=== PATIENT | female | born 1975 | race Caucasian/White ===

== ENCOUNTER 2021-03-18 11:50 | Outpatient (CLI) | payer OTHER | END 2021-03-18 11:51 | disposition home or self-care (01) | LOC: LAB 11:50 | PROVIDERS: ATTEND Radiology Diagnostic Radiology | DX: R10.0 Acute abdomen (principal) ==

== ENCOUNTER → 2021-03-22 | Outpatient (CLI) | payer OTHER | END | disposition home or self-care (01) | LOC: TOM 10:25 | PROVIDERS: ATTEND General Practice | DX: M51.36 Other intervertebral disc degeneration, lumbar region (principal); L02.212 Cutaneous abscess of back [any part, except buttock and flank] ==

== ENCOUNTER 2022-02-15 12:55 | Outpatient (CLI) | payer OTHER | END 2022-02-15 12:56 | disposition home or self-care (01) | LOC: SONOGRAMA 12:55 | DX: R22.2 Localized swelling, mass and lump, trunk (principal) ==

== ENCOUNTER 2022-08-16 13:30 | Outpatient (CLI) | payer OTHER | END 2022-08-16 13:35 | disposition home or self-care (01) | LOC: MAMO-SONO 13:30 | DX: N64.4 Mastodynia (principal); N92.1 Excessive and frequent menstruation with irregular cycle ==

== ENCOUNTER 2022-08-29 10:02 | Emergency (ER) | payer OTHER ==
[~2022-08-29] VITALS: Ht 162.6 cm; Wt 60.3 kg
== END 2022-08-29 11:22 | disposition home or self-care (01) ==
LOC: ER 10:02
DX: R53.81 Other malaise (principal); R05.9 Cough, unspecified

== ENCOUNTER 2022-11-05 00:59 | Emergency (ER) | payer OTHER ==
[~2022-11-05] VITALS: Ht 162.6 cm; Wt 59.0 kg
[2022-11-05] MEDS ORDERED: BACTRIM DS TAB1 EACH PO (04:22)
== END 2022-11-05 04:27 | disposition home or self-care (01) ==
LOC: ER 00:59
DX: R10.9 Unspecified abdominal pain (principal); R30.0 Dysuria; Z91.013 Allergy to seafood; N39.0 Urinary tract infection, site not specified

== ENCOUNTER 2023-01-20 07:24 | Outpatient (CLI) | payer OTHER ==
[~2023-01-20 07:24] MED LIST: BACTRIM DS TAB1 EACH PO
[2023-01-20 08:05] LABS: HEMATOCRIT 38.8 % (36.0-45.00); HEMOGLOBIN 12.9 g/dL (12.0-15.00); MEAN CELL VOLUME 82.4 fL (80.00-100.00); MEAN CORPUSCULAR HEMOGLOBIN 27.4 pg (27.00-32.0); MEAN CORPUSCULAR HGB CONC 33.3 g/dl (32.0-36.0); PLATELET COUNT 183 K/uL (150-450); RED CELL DISTRIBUTION WIDTH 22.8 % (11.5-14.5)
[2023-01-20 08:45] LABS: ALBUMIN 3.9 gm/dL (3.4-5.0); BILIRUBIN TOTAL 0.47 mg/dL (0.3-1.2); CALCIUM 9.1 mg/dL (8.5-10.1); CREATININE SERUM 0.76 mg/dL (0.55-1.02); GFR 81.22; GLOBULINA 3.8 G/DL (2.4-3.5); POTASSIUM 3.88 mEq/L (3.5-5.1); TOTAL PROTEIN 7.7 gm/dL (6.4-8.2)
== END 2023-01-20 08:03 | disposition home or self-care (01) ==
LOC: LAB 07:24
DX: D50.0 Iron deficiency anemia secondary to blood loss (chronic) (principal); N93.8 Other specified abnormal uterine and vaginal bleeding

== ENCOUNTER → 2023-11-01 08:36 | Outpatient (CLI) | payer OTHER ==
[2023-11-01 09:44] LABS: HEMATOCRIT 37.8 % (36.0-45.00); HEMOGLOBIN 13.2 g/dL (12.0-15.00); MEAN CELL VOLUME 89.9 fL (80.00-100.00); MEAN CORPUSCULAR HEMOGLOBIN 31.4 pg (27.00-32.0); MEAN CORPUSCULAR HGB CONC 34.9 g/dl (32.0-36.0); PLATELET COUNT 181 K/uL (150-450); RED CELL DISTRIBUTION WIDTH 13.8 % (11.5-14.5)
[2023-11-01 09:49] LABS: ERYTHROCYTE SEDIMENTATION RATE 15 mm/hr
[2023-11-01 09:54] LABS: PH,URINE 7.5 (5.0-8.0); URINE APPEARANCE Clear; URINE BILIRRUBIN Negative (NEGATIVE); URINE BLOOD Negative; URINE COLOR Yellow; URINE GLUCOSE Negative (NEGATIVE); URINE LEUKOCYTE Trace; URINE NITRATE Negative; URINE PROTEIN Negative (NEGATIVE)
[2023-11-01 09:58] LABS: URINE BACTERIA 821.3 uL (0.0-1933); URINE WBC 13.1 uL (0.0-23.2)
[2023-11-01 10:08] LABS: ALBUMIN 3.8 gm/dL (3.4-5.0); BILIRUBIN TOTAL 0.59 mg/dL (0.3-1.2); CALCIUM 9.1 mg/dL (8.5-10.1); CREATININE SERUM 0.77 mg/dL (0.55-1.02); GFR 79.67; GLOBULINA 3.6 G/DL (2.4-3.5); POTASSIUM 4.2 mEq/L (3.5-5.1); TOTAL PROTEIN 7.4 gm/dL (6.4-8.2)
[2023-11-01 10:25] LABS: TSH 1.05 uIU/mL (0.358-3.74)
[2023-11-02 09:07] LABS: COMPLEMENT C3 141 mg/dL (82-167); COMPLEMENT C4 35 mg/dL (12-38)
[2023-11-03 13:06] LABS: sjogrens ssa < 0.2 AI (0.0-0.9); sjogrens ssb < 0.2 AI (0.0-0.9)
== END | disposition home or self-care (01) ==
LOC: LAB 08:36
PROVIDERS: ATTEND General Practice
DX: E78.5 Hyperlipidemia, unspecified (principal); M79.641 Pain in right hand; M79.642 Pain in left hand; Z13.29 Encounter for screening for other suspected endocrine disorder; N39.0 Urinary tract infection, site not specified; E55.9 Vitamin D deficiency, unspecified

== ENCOUNTER 2023-11-01 09:14 | Outpatient (CLI) | payer OTHER | END 2023-11-01 09:21 | disposition home or self-care (01) | LOC: RAD 09:14 | PROVIDERS: ATTEND General Practice | DX: M65.342 Trigger finger, left ring finger (principal); M65.352 Trigger finger, left little finger; M79.642 Pain in left hand; M79.641 Pain in right hand ==

== ENCOUNTER 2023-11-29 11:26 | Outpatient (CLI) | payer OTHER | END 2023-11-29 11:33 | disposition home or self-care (01) | LOC: SONOGRAMA 11:26 | PROVIDERS: ATTEND Specialist | DX: N92.1 Excessive and frequent menstruation with irregular cycle (principal) ==

== ENCOUNTER 2024-02-27 13:58 | Emergency (ER) | payer OTHER ==
[~2024-02-27] VITALS: Ht 162.6 cm; Wt 62.1 kg
[2024-02-27] MEDS ORDERED: KETOROLAC TROMETHAMINE 60 MG VIAL IM STA (15:03)
== END 2024-02-27 18:54 | disposition home or self-care (01) ==
LOC: ER 14:00
DX: F45.41 Pain disorder exclusively related to psychological factors (principal); M50.321 Other cervical disc degeneration at C4-C5 level; Z91.013 Allergy to seafood

== ENCOUNTER → 2024-02-27 | Emergency (ER) | payer OTHER ==
[~2024-02-27] VITALS: Ht 162.6 cm; Wt 62.1 kg
== END | disposition home or self-care (01) ==
LOC: ER 00:44
DX: F45.41 Pain disorder exclusively related to psychological factors (principal); Z91.013 Allergy to seafood; R51.9 Headache, unspecified

== ENCOUNTER → 2024-03-01 | Emergency (ER) | payer OTHER ==
[~2024-03-01] VITALS: Ht 157.5 cm; Wt 69.9 kg
[2024-03-01 23:40] VITALS: BP 135/88; O2SAT 100
== END | disposition left against medical advice (07) ==
LOC: ER 22:52
DX: Z53.21 Procedure and treatment not carried out due to patient leaving prior to being seen by health care provider (principal)

== ENCOUNTER 2024-08-13 08:22 | Outpatient (CLI) | payer OTHER | END 2024-08-13 08:27 | disposition home or self-care (01) | LOC: MAMO-SONO 08:22 | DX: N64.4 Mastodynia (principal); Z12.31 Encounter for screening mammogram for malignant neoplasm of breast ==

== ENCOUNTER 2024-08-28 09:45 | Outpatient (CLI) | payer OTHER ==
[2024-08-28 10:37] LABS: HEMATOCRIT 37.6 % (36.0-45.00); HEMOGLOBIN 12.7 g/dL (12.0-15.00); MEAN CELL VOLUME 85.7 fL (80.00-100.00); MEAN CORPUSCULAR HEMOGLOBIN 28.9 pg (27.00-32.0); MEAN CORPUSCULAR HGB CONC 33.7 g/dl (32.0-36.0); PLATELET COUNT 178 K/uL (150-450); RED BLOOD COUNT 4.39 M/uL (4.00-6.00); RED CELL DISTRIBUTION WIDTH 14.6 % (11.5-14.5)
[2024-08-28 11:21] LABS: INR 1.03; PARTIAL THROMBOPLASTIN TIME 27.2 SECONDS (22.0-34.0); PROTHROMBIN TIME 11.2 SECONDS (9.0-11.5)
[2024-08-28 11:38] LABS: ALBUMIN 3.9 gm/dL (3.4-5.0); BILIRUBIN TOTAL 0.72 mg/dL (0.3-1.2); CALCIUM 9.2 mg/dL (8.5-10.1); CREATININE SERUM 0.8 mg/dL (0.55-1.02); GFR 76.24; GLOBULINA 3.7 G/DL (2.4-3.5); POTASSIUM 4.16 mEq/L (3.5-5.1); TOTAL PROTEIN 7.6 gm/dL (6.4-8.2)
[2024-08-29 09:07] LABS: HEPATITIS B CORE IGG Negative (Negative); HEPATITIS B CORE IGM Negative (Negative); HEPATITIS B SURFACE ANTIBODY Non Reactive (.); HEPATITIS C VIRUS ANTIBODY Non Reactive (Non Reactive)
== END 2024-08-28 09:50 | disposition home or self-care (01) ==
LOC: LAB 09:45
DX: R93.2 Abnormal findings on diagnostic imaging of liver and biliary tract (principal)